=== PATIENT | female | born 1970 | race Caucasian/White ===

== ENCOUNTER 2017-07-27 11:34 | Emergency (ER) | payer OTHER ==
[~2017-07-27] VITALS: Ht 157.4 cm; Wt 120.2 kg
[~2017-07-27 11:34] MED LIST: AMOXICILLIN500 MG PO; AUGMENTIN 875 M1 TAB PO; BIAXIN500 MG PO; CLARITIN10 MG PO; COMPAZINE10 MG PO; DARVOCET N 1001 TAB PO; DAYPRO600 M1 PO; FLEXERIL10 MG PO; MOTRIN800 MG PO; ULTRAM50 MG PO; ZITHROMAX Z PA250 MG PO; ZYRTEC10 MG PO
[2017-07-27] MEDS ORDERED: GABAPENTIN100 M2 PO (11:48)
[2017-07-27] MEDS ORDERED: BUSPAR15 MG PO (11:48)
[2017-07-27] MEDS ORDERED: HYDROCHLOROTH12.5 M3 PO (11:48)
[2017-07-27] MEDS ORDERED: VENLAFAXINE HY150 M2 PO (11:48)
== END 2017-07-27 12:29 | disposition home or self-care (01) ==
LOC: ED 11:34
DX: M17.11 Unilateral primary osteoarthritis, right knee (principal); M25.561 Pain in right knee; E66.01 Morbid (severe) obesity due to excess calories; Z68.42 Body mass index [BMI] 45.0-49.9, adult; Z79.899 Other long term (current) drug therapy

== ENCOUNTER 2017-11-16 09:11 | Emergency (ER) | payer OTHER ==
[~2017-11-16] VITALS: Ht 160 cm; Wt 117.9 kg
--- NOTE | ~2017-11-16 | EKG ---
[place], [place] ELECTROCARDIOGRAM REPORT NAME: MALISSA GUARDADO UNIT #: [id number] ROOM: DOCTOR: EPIPHANY DRAFT REPORT BIRTHDATE: [birth year] [facility] Test Date: 2017-11-16 Test Time: 09:40:29 Pat Name: MALISSA GUARDADO Department: Room: Gender: F Edi Developer: 17 : 1970 Requested By: YELITZA MERRITT Order Number: [id number] Reading MD: Gregory Harvey MD Measurements Intervals [place] Rate: 80 P: 53 AK: 139 QRS: 1 QRSD: 80 T: 35 QT: 364 QTc: 420 Interpretive Statements Sinus rhythm Abnormal R-wave progression, early transition Electronically Signed On 11-16-2017 20:35:50 PDT by Gregory Harvey MD CM:EKGRPT:ELECTROCARDIOGRAM REPORT 34 YELITZA MERRITT EPIPHANY DRAFT REPORT YELITZA MERRITT
[~2017-11-16 09:11] MED LIST changes: +BUSPAR15 MG PO; +GABAPENTIN100 M2 PO; +HYDROCHLOROTH12.5 M3 PO; +VENLAFAXINE HY150 M2 PO
[2017-11-16 09:45] LABS: BASO % 0.4 % (0.0-1.0); EOS # 0.2 10*3/uL (0.0-0.4); EOS % 1.8 % (1.0-4.0); HEMATOCRIT 43.7 % (37.0-47.0); HEMOGLOBIN 14.6 g/dl (12.0-16.0); LYMPH # 1.5 10*3/uL (1.3-4.4); LYMPH % 18.7 % (27.0-41.0); MEAN CELL VOLUME 93.2 fl (81.0-99.0); MEAN CORPUSCULAR HGB 31.1 pg (27.0-31.0); MEAN CORPUSCULAR HGB CONC 33.4 g/dl (33.0-37.0); MEAN PLATELET VOLUME 10.5 fl (9.6-12.3); MONO # 0.4 10*3/uL (0.1-1.0); MONO % 4.9 % (3.0-9.0); NEUT % 73.8 % (47.0-73.0); PLATELET COUNT AUTOMATED 255 10*3/uL (130-400); RED BLOOD COUNT 4.69 10*6/uL (4.10-5.10); RED CELL DISTRI WIDTH 12.1 % (0-14.5); WHITE BLOOD COUNT 8.2 10*3/uL (4.8-10.8)
[2017-11-16 10:01] LABS: ALKALINE PHOSPHATASE 78 U/L (45-117); BUN 8 mg/dl (7-24); CHLORIDE 105 mmol/L (98-107); CREATININE 0.81 mg/dL (0.55-1.02); LIPASE 226 U/L (73-393); POTASSIUM 3.7 mmol/L (3.5-5.1); SGOT/AST 18 IU/L (3-35); SGPT/ALT 27 U/L (12-78); SODIUM 140 mmol/L (136-145); TOTAL PROTEIN 8.3 gm/dL (6.4-8.2)
[2017-11-16 10:06] LABS: TROPONIN I < 0.015 ng/ml (<0.045)
[2017-11-16 10:32] LABS: BILIRUBIN NEGATIVE (NEGATIVE); BLOOD NEGATIVE (NEGATIVE); CLARITY SL CLOUDY (CLEAR); COLOR YELLOW (YELLOW); GLUCOSE NEGATIVE (NEGATIVE); KETONE NEGATIVE (NEGATIVE); LEUKO ESTERASE NEGATIVE (NEGATIVE); NITRITE NEGATIVE (NEGATIVE); UROBILINOGEN 0.2 E.U./dl (0.2-1.0)
[2017-11-16 10:40] LABS: BACTERIA 2+; EPITHELIAL CELLS 35-40; WBC 0-2 wbc/hpf (0-5)
[2017-11-16] MEDS ORDERED: ZOFRAN ODT4 MG SL (11:42)
== END 2017-11-16 11:56 | disposition home or self-care (01) ==
LOC: ED 09:11
PROVIDERS: Nurse Practitioner Family
DX: R10.32 Left lower quadrant pain (principal); R11.0 Nausea; R06.02 Shortness of breath; R42 Dizziness and giddiness; Z79.899 Other long term (current) drug therapy

== ENCOUNTER → 2019-11-09 | Emergency (ER) | payer BC ==
[~2019-11-09] VITALS: Ht 157.4 cm; Wt 113.4 kg
[~2019-11-09] MED LIST changes: +ZOFRAN ODT4 MG SL
== END ==
LOC: ED 06:24
DX: S05.02XA Injury of conjunctiva and corneal abrasion without foreign body, left eye, initial encounter (principal); Z79.899 Other long term (current) drug therapy; X58.XXXA Exposure to other specified factors, initial encounter; Y93.89 Activity, other specified; Y92.89 Other specified places as the place of occurrence of the external cause; Y99.8 Other external cause status

== ENCOUNTER 2022-10-24 19:33 | Emergency (ER) | payer OTHER ==
[~2022-10-24] VITALS: Wt 108.9 kg
[2022-10-24] MEDS ORDERED: NAPROXEN250 MG PO (20:03)
[2022-10-24] MEDS ORDERED: METHOCARBAMOL750 M1 PO (20:03)
== END 2022-10-24 20:09 | disposition home or self-care (01) ==
LOC: ED 19:33
DX: S29.012A Strain of muscle and tendon of back wall of thorax, initial encounter (principal); M25.511 Pain in right shoulder; Z98.890 Other specified postprocedural states; V89.2XXA Person injured in unspecified motor-vehicle accident, traffic, initial encounter; Y93.89 Activity, other specified; Y92.89 Other specified places as the place of occurrence of the external cause; Y99.8 Other external cause status